=== PATIENT | female | born 1940 | race Caucasian/White ===

== ENCOUNTER → 2025-09-14 13:23 | Outpatient (REF) | payer OTHER, SELFPAY | LOC: RAD 13:23 | PROVIDERS: ATTENDING PHYSICIAN Otolaryngology; FAMILY PHYSICIAN Family Medicine | DX: D11.0 Benign neoplasm of parotid gland (principal) | CPT/HCPCS: 76536 ==

== ENCOUNTER → 2025-09-30 09:25 | Outpatient (REF) | payer OTHER, SELFPAY | LOC: WDC 09:25 | PROVIDERS: ATTENDING PHYSICIAN Family Medicine | DX: N63.10 Unspecified lump in the right breast, unspecified quadrant (principal) | CPT/HCPCS: 76642; 77062; 77066 ==